=== PATIENT | female | born 1995 | race Caucasian/White ===

== ENCOUNTER 2018-05-27 11:13 | Emergency (ER) | payer MEDICAID, SELFPAY ==
[2018-05-27 11:20] VITALS: BP 125/82; PULSE 96; RESP 16; TEMP 36.5; O2SAT 96
--- NOTE | 2018-05-27 11:41 | DI.RAD_ITS ---
SYMPTOM/DIAGNOSIS: COUGH, SOB CHEST X-RAY: PA AND LATERAL. No priors. The heart is normal in size. The lungs are clear. The mediastinal structures and pleura appear intact. CONCLUSION: Normal chest.
--- NOTE | 2018-05-27 11:44 | ED.GENADUL_ITS ---
Discharge Plan Disposition Patient Disposition: HOME Condition: Fair Discharge Details Chief Complaint: RespSymp Clinical Impression: Bronchitis, Asthma exacerbation Primary Care Provider: Tasha Peñaloza ED Provider: Gema Banks Home Meds and New Rx's Prescriptions: New prednisone 20 mg tablet 40 mg PO DAILY Qty: 8 RF: 0 azithromycin 500 mg tablet See Label Instructions .ROUTE .COMPLEX Qty: 3 RF: 0 No Action fexofenadine-pseudoephedrine [Lola-D 24 Hour] 1 EACH tablet extended release 24 hr 1 tab-cap PO DAILY RF: 0 triamcinolone acetonide 15 GM cream 30 gm Topical tid prn Qty: 1 RF: 0 norethindrone-e.estradiol-iron [Blisovi Fe 08/12 ()] 1 EACH tablet 1 ea PO DAILY Qty: 3 RF: 4 montelukast 10 MG tablet 10 mg PO DAILY Qty: 30 RF: 1 fluticasone [Flovent HFA] 12 GM HFA aerosol inhaler 440 mcg Inhalation BID Qty: 1 RF: 2 escitalopram oxalate 20 MG tablet 1 tab PO DAILY Qty: 30 RF: 11 albuterol sulfate [ProAir HFA] 8.5 GM HFA aerosol inhaler 1 - 2 puff Inhalation Q6H PRN Qty: 1 RF: 4 Discharge Instructions Instructions: Asthma (ED), Acute Bronchitis (ED) Additional Instructions: Encourage hydration. Tylenol and/or ibuprofen as needed for discomfort. He may continue with your L inhaler as previously prescribed. Please take prednisone daily, try to take this in the morning as it may cause disturbances to sleep. Please take azithromycin as prescribed. Even if symptoms improve please finish the entire course of these medications. Please follow-up with primary care this week for reevaluation. If you develop fever/chills, difficulty breathing, increased shortness of breath or other new/worsening symptoms please seek care urgently once again. Referrals: Tasha Peñaloza NP [Primary Care Provider] - Discharge Data Discharge Date/Time-TO BE ENTERED AT DEPARTURE: 05/27/18 13:17 Medical Decision Making Patient 23-year-old female presenting today with chief complaint of asthma exacerbation and cough. She reports she been ill for the past 3 days. I will cough. She denies any fevers or chills. Denies any GI upset. Denies any pain in the ears or sore throat. States she has been bringing up some clear mucus with the cough. Has been feeling short of breath. Is been using her albuterol inhaler frequently, states that she last used this at 0800 this morning. On exam, patient was noted to be quite tight has diminished air movement. She does have faint expiratory wheeze in all covarrubias. I shows 96%. Patient is slightly tachycardic at 96. She appears otherwise well with no acute findings. She does appear congested. Plan to the patient DuoNeb and chest x-ray. Will first obtain a UPT. UPT negative Chest x-ray reviewed by radiologist. Advised the lungs are clear bilaterally. No focal pulmonary consolidation present. Cardiac silhouette is within normal limits. Costophrenic angles are sharp. Bony structures appear unremarkable. No evidence of acute cardiopulmonary disease Reevaluated the patient and she obtained her updraft. She is moving air much more freely. She is feeling improved. She continues to be wheezy but I am quite happy with the movement of air unable to hear at this point. Patient will be given a second albuterol nebulizer prior to departure. She will be begun on oral prednisone. Patient has not been on prednisone historically for her asthma. We did discuss the side effects that are possible with oral steroids. She will also be placed on azithromycin for presumed infection given her symptoms and history. Encouraged hydration. She was given strict return precautions. She will follow-up with primary care this week for reevaluation. All of her questions and concerns were addressed and she is in agreement this plan Patient reports she is no longer taking escitalopram, I did note interaction with this and azithromycin which she reports she stopped taking this for quite some time. HPI General Mode of arrival: ambulatory . Date/Time Provider Initiated Documentation: 05/27/18 11:33 . Limitations to Documentation: no limitations . Information obtained by: patient . History of Present Illness 23 year old F presents to the emergency department with the chief complaint of cough, SOB, described as moderate, with intensity rated at 4. Quality is described as aching (reports some discomfort with cough), and is localized to the chest. Patient denies radiation to back, neck, extremity and abdomen. Patient started experiencing this day(s) (3) and it has been constant. No relieving factors improve symptom(s), No exacerbating factors reported . Patient notes chest pain (with cough), cough and shortness of breath; denies fever/chills, headaches, loss of appetite, nausea/vomiting, rash and syncope. Patient did receive the following treatments prior to arrival, other ( albuterol inhaler) Related Data Home Medications Medication Instructions Recorded Confirmed fexofenadine-pseudoephedrine 1 tab-cap PO DAILY tab-cap 05/02/17 05/27/18 [Lola-D 24 Hour Tablet] triamcinolone acetonide 30 gm TOPICAL tid prn #1 script 06/28/17 05/27/18 norethindrone-e.estradiol-iron 1 ea PO DAILY #3 pack 08/02/17 05/27/18 [Blisovi Fe 1-20 Tablet] fluticasone [Flovent 220mcg] 440 mcg INHALATION BID #1 inhaler 09/12/17 05/27/18 montelukast 10 mg PO DAILY #30 tab-cap 18 05/27/18 escitalopram oxalate 1 tab PO DAILY #30 tab-cap 11/01/17 albuterol sulfate [Proair Hfa] 1 - 2 puff INHALATION Q6H PRN #1 12/04/17 inhaler azithromycin See Label Instructions .ROUTE 05/27/18 .COMPLEX #3 tab prednisone 40 mg PO DAILY #8 tab 05/27/18 Previous Rx's Medication Instructions Recorded triamcinolone acetonide 30 gm TOPICAL tid prn #1 script 06/28/17 norethindrone-e.estradiol-iron 1 ea PO DAILY #3 pack 08/02/17 [Blisovi Fe 1-20 Tablet] fluticasone [Flovent 220mcg] 440 mcg INHALATION BID #1 inhaler 09/12/17 montelukast 10 mg PO DAILY #30 tab-cap 09/12/17 escitalopram oxalate 1 tab PO DAILY #30 tab-cap 11/01/17 albuterol sulfate [Proair Hfa] 1 - 2 puff INHALATION Q6H PRN #1 12/04/17 inhaler azithromycin See Label Instructions .ROUTE 05/27/18 .COMPLEX #3 tab prednisone 40 mg PO DAILY #8 tab 05/27/18 Allergies Allergy/AdvReac Type Severity Reaction Status Date / Time No Known Allergies Allergy Unverified 05/27/18 11:25 General Stated Complaint: RespSymp PATRICA: 3 Review of Systems Constitutional Reports as per HPI and Denies headache(s) Eyes Denies eye discharge and Denies irritation ENT Reports system reviewed and no additional complaints, except as docu, Denies otalgia, Denies headache(s), Reports nasal congestion, Reports nasal discharge, Denies sinus pain, Denies sinus pressure and Denies sore throat Cardiovascular Reports as per HPI, Denies chest pain and Reports dyspnea Respiratory Reports as per HPI, Reports cough, Denies pain on inspiration, Denies pain with cough, Reports dyspnea, Denies stridor and Reports wheezing Gastrointestinal Denies abdominal pain, Denies change in stool character, Denies diarrhea, Denies nausea and Denies vomiting Musculoskeletal Denies back pain Integumentary/Breasts Denies rash Neurologic Denies headache(s) Allergic/Immunologic Reports wheezing PFSH Family History Mother Substance abuse Alcohol abuse Depression Asthma Father Diabetes Sister Substance abuse Depression Asthma Brother No problems noted. Grandfather Diabetes Neoplasm Grandfather No problems noted. Grandmother Diabetes Neoplasm Grandmother Heart disease FAMILY HISTORY Lupus Fibromyalgia Mental disorder Medical History Asthma BMI 40.0-44.9, adult Contraception, generic surveillance Depression Social History Smoking/Tobacco Use Status: Former Tobacco Use Exam Const General: cooperative, healthy appearing, comfortable, no acute distress, well developed and well groomed Nutritional Appearance: average body habitus and well nourished Orientation: alert and awake [facility] Head: normal to inspection and normocephalic Ears: hearing grossly normal bilaterally, external ears normal and TM's normal bilaterally General nose exam: external nose normal and nares normal Face and sinus: normal facial exam, sinuses nontender and face symmetric Mouth: oral mucosae normal, lip normal, tongue normal, oropharynx normal and moist mucous membranes Teeth and gingiva: dentition normal Throat: posterior oropharynx normal, tonsils normal and uvula midline Eyes General: appearance normal, both eyes and all related structures Neck Neck: normal visual inspection, full ROM, no lymphadenopathy, no meningeal signs , trachea midline and supple Chest Chest: normal inspection of the chest Resp Effort & Inspection: normal respiratory effort, able to speak in complete sentences, no respiratory distress, not tachypneic, no tripod positioning and no use of accessory muscles Auscultation: diminished lung sounds bilaterally and wheezes (diffuse faint wheezing) expiratory wheezes Cardio Rate: regular rate Rhythm: regular rhythm Heart Sounds: S1 normal and S2 normal Skin General skin exam: no rashes or lesions noted Neuro General: alert and awake Cognition: normal cognition Speech: speech normal Gait: normal gait Extrem General: no pedal edema, no calf tenderness and normal gait Psych Appearance: grossly normal and well kempt Mental Status: mental status grossly normal Speech and Movement: speech and movement normal Course Vital Signs Temperature 36.5 C 05/27/18 11:20 Pulse 96 H 05/27/18 11:20 Respiratory Rate 16 05/27/18 11:20 Blood Pressure 125/82 05/27/18 11:20 Pulse Oximetry 96 05/27/18 11:20 Temperature 36.5 C 05/27/18 11:20 Temperature Source Temporal Artery Scan 05/27/18 11:20 Pulse 96 H 05/27/18 11:20 Respiratory Rate 16 05/27/18 11:20 Respiratory Effort 05/27/18 11:27 Respiratory Depth Normal 05/27/18 11:27 Blood Pressure 125/82 05/27/18 11:20 Blood Pressure Position Sitting 05/27/18 11:20 Pulse Oximetry 96 05/27/18 11:20 Oxygen Delivery Method Room Air 05/27/18 11:20 Oxygen Flow Rate 0 05/27/18 11:20 Pain Level 4 05/27/18 11:20
[2018-05-27 11:47] VITALS: RESP 4
[2018-05-27] MEDS: Albuterol/Ipratropium 3 ML UPD VIAL UPD (11:47)
[2018-05-27 12:17] VITALS: RESP 4
--- NOTE | 2018-05-27 12:38 | DI.VRAD_ITS ---
EXAM: XR Chest, 2 Views EXAM DATE/TIME: 05/27/2018 11:42 AM CLINICAL HISTORY: 23 years old, female; Signs and symptoms; Other: Cough, SOB TECHNIQUE: XR of the chest, 2 views. COMPARISON: CR ABD FLAT UPRIGHT PA CHEST 05/27/2016 8:30 PM FINDINGS: The lung covarrubias are clear bilaterally. No focal pulmonary consolidation is present. The cardiac silhouette is within normal limits. The costophrenic angles are sharp. The bony structures appear unremarkable. IMPRESSION: No evidence of acute cardiopulmonary disease. Dictated and Authenticated by: Amari Blood MD. Ordering:THERESA GODFREY MD
[2018-05-27 12:49] VITALS: RESP 4
[2018-05-27] MEDS: predniSONE 20 MG TAB 40 MG PO (12:49)
[2018-05-27] MEDS: Albuterol 2.5 MG/3 ML INH SOLN VIAL UPD (12:49)
[2018-05-27 13:13] VITALS: BP 118/76; PULSE 102; RESP 16; TEMP 36.9; O2SAT 96
[2018-05-27 13:15] VITALS: BP 118/76; PULSE 102; RESP 16; TEMP 36.9; O2SAT 96
== END 2018-05-27 13:17 | disposition home or self-care (01) ==
PROVIDERS: Emergency Provider Physician Assistant
DX: J44.0 Chronic obstructive pulmonary disease with (acute) lower respiratory infection (principal); J20.9 Acute bronchitis, unspecified; J45.909 Unspecified asthma, uncomplicated; Z87.891 Personal history of nicotine dependence
CPT/HCPCS: 81025; 94640; 99284; 71046; 99285; J7512; J7613; J7620

== ENCOUNTER 2018-06-27 17:38 | Emergency (ER) | payer MEDICAID, SELFPAY ==
[2018-06-27 17:59] VITALS: BP 128/72; PULSE 87; RESP 16; TEMP 36.7
--- NOTE | 2018-06-27 18:10 | DI.RAD_ITS ---
SYMPTOM/DIAGNOSIS: HAND CRUSHED IN CAR DOOR RIGHT HAND: No fracture or dislocation is seen. IMPRESSION: Negative right hand.
--- NOTE | 2018-06-27 18:10 | DI.RAD_ITS ---
SYMPTOM/DIAGNOSIS: TRAUMA RIGHT WRIST: No fracture or dislocation is seen. IMPRESSION: Negative right wrist.
--- NOTE | 2018-06-27 18:11 | W.ED.GENAD ---
Discharge Plan Disposition Patient Disposition: HOME Condition: Fair Discharge Details Chief Complaint: Orthopedic Clinical Impression: Contusion of hand Reason For Visit: right hand / car door Primary Care Provider: Tasha Peñaloza ED Provider: Gema Banks Home Meds and New Rx's Prescriptions: Continue fexofenadine-pseudoephedrine [Lola-D 24 Hour] 1 EACH tablet extended release 24 hr 1 tab-cap PO DAILY RF: 0 triamcinolone acetonide 15 GM cream 30 gm Topical tid prn Qty: 1 RF: 0 norethindrone-e.estradiol-iron [Blisovi Fe 08/12 (28)] 1 EACH tablet 1 ea PO DAILY Qty: 3 RF: 4 montelukast 10 MG tablet 10 mg PO DAILY Qty: 30 RF: 1 fluticasone [Flovent HFA] 12 GM HFA aerosol inhaler 440 mcg Inhalation BID Qty: 1 RF: 2 escitalopram oxalate 20 MG tablet 1 tab PO DAILY Qty: 30 RF: 11 albuterol sulfate [ProAir HFA] 90 mcg/actuation HFA aerosol inhaler 1 - 2 puff Inhalation Q6H PRN Qty: 1 RF: 4 prednisone 20 mg tablet 40 mg PO DAILY Qty: 8 RF: 0 azithromycin 500 mg tablet See Label Instructions .ROUTE .COMPLEX Qty: 3 RF: 0 Discharge Instructions Instructions: Contusion in Adults (ED) Additional Instructions: Encourage rest, ice, elevation. Tylenol and/or ibuprofen as needed for discomfort. May continue with James wrap to help with discomfort and swelling. Please avoid activities that cause increased pain. If you develop new or worsening symptoms please seek care urgently once again. If pain is not improved over the next 2 weeks please follow-up with primary care. Referrals: Tasha Peñaloza, [employer]INE[employer] [Primary Care Provider] - Discharge Data Discharge Date/Time-TO BE ENTERED AT DEPARTURE: 06/27/18 20:14 Medical Decision Making Patient 23-year-old [id number] female presenting today with chief complaint of right hand and wrist pain. 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 She reports the client, and anger, slammed the door on her hand catching her over the MCP joints. Pain is maximal over the third and fourth MCP joint. However, she states that she then pulled her digits from the vehicle door and now is endorsing some finger pain. Also reports that secondary to the unusual rotation she is having wrist pain. She denies any altered sensation. Denies other injuries from the incident. No opening in the skin. She does have some ecchymosis and swelling over the third and fourth MCP joint. Very limited range of motion of her digits and her wrist secondary to discomfort. She is not taking anything as of yet for her discomfort. Will give Tylenol and ibuprofen. Will obtain x-rays of the hand and wrist X-ray reviewed by radiologist. X-ray of the right hand reviewed, no acute fracture or subluxation. Mild dorsal hand swelling which is also noted on physical exam. Advised overall impression is no acute bony pathology. X-ray of the patient's right wrist also reviewed with no acute fracture or subluxation. Soft tissues are normal. Overall impression no acute bony pathology Patient I discussed the findings. Advised on contusion. Encouraged rest, ice, elevation. Tylenol and/or ibuprofen as needed for discomfort. I did advise that she use James wrap to help with swelling and discomfort. This will be applied by nursing staff prior to her departure. I advised that she seek care with any new or worsening symptoms. Advised she not perform any heavy lifting or activities that may increase her discomfort. Advise follow-up with primary care pain is not improving over the next 2 weeks. All of her questions and concerns were addressed and she is in agreement with this plan HPI General Mode of arrival: ambulatory. Date/Time Provider Initiated Documentation: 06/27/18 18:06. Limitations to Documentation: no limitations. Information obtained by: patient. History of Present Illness 23 year old F presents to the emergency department with the chief complaint of right hand and wrist pain, described as moderate, with intensity rated at 7. Quality is described as aching, and is localized to the right and upper extremity. Patient reports no radiation. Patient started experiencing this minute(s) and it has been constant. Immobilization improves symptom(s), Movement worsens symptoms . Patient notes no other symptoms.; denies fever/chills, headaches, rash and weakness. Patient did receive the following treatments prior to arrival, none Related Data Home Medications Medication Instructions Recorded Confirmed fexofenadine-pseudoephedrine 1 tab-cap PO DAILY tab-cap 05/02/17 05/27/18 [Lola-D 24 Hour] triamcinolone acetonide 30 gm TOPICAL tid prn #1 script 06/28/17 05/27/18 norethindrone-e.estradiol-iron 1 ea PO DAILY #3 pack 08/02/17 05/27/18 [Blisovi Fe 08/12 (28)] fluticasone [Flovent HFA] 440 mcg INHALATION BID #1 inhaler 09/12/17 05/27/18 montelukast 10 mg PO DAILY #30 tab-cap 09/12/17 05/27/18 escitalopram oxalate 1 tab PO DAILY #30 tab-cap 11/01/17 azithromycin See Label Instructions .ROUTE 05/27/18 .COMPLEX #3 tab prednisone 40 mg PO DAILY #8 tab 05/27/18 albuterol sulfate HFA 90 1 - 2 puff INHALATION Q6H PRN #1 05/28/18 mcg/actuation aerosol inhaler inhaler Previous Rx's Medication Instructions Recorded triamcinolone acetonide 30 gm TOPICAL tid prn #1 script 06/28/17 norethindrone-e.estradiol-iron 1 ea PO DAILY #3 pack 08/02/17 [Blisovi Fe 08/12 (28)] fluticasone [Flovent HFA] 440 mcg INHALATION BID #1 inhaler 09/12/17 montelukast 10 mg PO DAILY #30 tab-cap 09/12/17 escitalopram oxalate 1 tab PO DAILY #30 tab-cap 11/01/17 azithromycin See Label Instructions .ROUTE 05/27/18 .COMPLEX #3 tab prednisone 40 mg PO DAILY #8 tab 05/27/18 albuterol sulfate HFA 90 1 - 2 puff INHALATION Q6H PRN #1 05/28/18 mcg/actuation aerosol inhaler inhaler Allergies Allergy/AdvReac Type Severity Reaction Status Date / Time No Known Allergies Allergy Unverified 05/27/18 11:25 General Stated Complaint: Orthopedic PATRICA: 4 Review of Systems Constitutional Reports as per HPI, Denies chills, Denies fever(s), Denies headache(s) and Denies weakness ENT Denies headache(s) Cardiovascular Reports as per HPI Respiratory Reports as per HPI and Denies cough Musculoskeletal Reports as per HPI and Denies tingling Integumentary/Breasts Reports as per HPI, Denies rash and Denies wounds Neurologic Denies headache(s), Denies tingling and Denies weakness PFSH Asthma BMI 40.0-44.9, adult Contraception, generic surveillance Depression Family History Mother Substance abuse Alcohol abuse Depression Asthma Father Diabetes Sister Substance abuse Depression Asthma Brother No problems noted. Grandfather Diabetes Neoplasm Grandfather No problems noted. Grandmother Diabetes Neoplasm Grandmother Heart disease FAMILY HISTORY Lupus Fibromyalgia Mental disorder Family History Mother Substance abuse Alcohol abuse Depression Asthma Father Diabetes Sister Substance abuse Depression Asthma Brother No problems noted. Grandfather Diabetes Neoplasm Grandfather No problems noted. Grandmother Diabetes Neoplasm Grandmother Heart disease FAMILY HISTORY Lupus Fibromyalgia Mental disorder Medical History Asthma BMI 40.0-44.9, adult Contraception, generic surveillance Depression Social History Smoking/Tobacco Use Status: Former Tobacco Use Social History Smoking/Tobacco Use Status: Former Tobacco Use Exam Const General: cooperative, healthy appearing, comfortable, no acute distress, well developed and well groomed Nutritional Appearance: average body habitus and well nourished Orientation: alert and awake Resp Effort & Inspection: normal respiratory effort, able to speak in complete sentences and no respiratory distress Cardio Rate: regular rate Rhythm: regular rhythm Skin General skin exam: ecchymosis (ulnar side of the dorsum of the hand with associated soft tissue swelling) Neuro General: alert and awake Cognition: normal cognition Speech: speech normal Gait: normal gait Motor: muscle tone normal throughout Sensory Exam: no sensory deficits noted Extrem Right upper extremity: normal capillary refill and no joint enlargement; abnormal to inspection (Patient has swellin gand ecchymosis as above. Limited ROM. She is able to extend against resistance well. No snuff box tenderness. No pain in the digits. Sensation intact. Wrist pain diffuse, no palpable or visible deformity of hand or wrist. ) Psych Appearance: grossly normal and well kempt Mental Status: mental status grossly normal Speech and Movement: speech and movement normal Course Vital Signs Temperature 36.7 C 06/27/18 17:59 Pulse 87 06/27/18 17:59 Respiratory Rate 16 06/27/18 17:59 Blood Pressure 128/72 06/27/18 17:59 Temperature 36.7 C 06/27/18 17:59 Pulse 87 06/27/18 17:59 Respiratory Rate 16 06/27/18 17:59 Blood Pressure 128/72 06/27/18 17:59 Blood Pressure Position Sitting 06/27/18 17:59 Oxygen Delivery Method Room Air 06/27/18 17:59 Oxygen Flow Rate 0 06/27/18 17:59 Pain Level 7 06/27/18 17:59
[2018-06-27] MEDS: Ibuprofen 600 MG TAB PO (19:20)
[2018-06-27] MEDS: Acetaminophen 500 MG TAB 1000 MG PO (19:20)
--- NOTE | 2018-06-27 19:26 | DI.VRAD_ITS ---
EXAM: XR Right Hand Complete, 3 or more Views EXAM DATE/TIME: 06/27/2018 6:12 PM CLINICAL HISTORY: 23 years old, female; Pain; Hand; Right; Patient HX: R hand closed in car door TECHNIQUE: XR Right hand 3 or more views. COMPARISON: No relevant prior studies available. FINDINGS: Bones/joints: No acute fracture or subluxation. Soft tissues: Mild dorsal hand swelling. IMPRESSION: No acute bony pathology. Dictated and Authenticated by: Kenia Lau MD. Ordering:THERESA GODFREY MD
--- NOTE | 2018-06-27 19:26 | DI.VRAD_ITS ---
EXAM: XR Right Wrist Complete, 3 or more Views EXAM DATE/TIME: 06/27/2018 6:12 PM CLINICAL HISTORY: 23 years old, female; Pain; Hand; Right; Patient HX: Right wrist closed in car door TECHNIQUE: XR Right wrist 3 or more views. COMPARISON: No relevant prior studies available. FINDINGS: Bones/joints: No acute fracture or subluxation. Soft tissues: Normal. IMPRESSION: No acute bony pathology. Dictated and Authenticated by: Kenia Lau MD. Ordering:THERESA GODFREY MD
== END 2018-06-27 20:14 | disposition home or self-care (01) ==
LOC: ER 20:16
PROVIDERS: Emergency Provider Physician Assistant
DX: S60.221A Contusion of right hand, initial encounter (principal); W23.0XXA Caught, crushed, jammed, or pinched between moving objects, initial encounter
CPT/HCPCS: 99284; 73110; 73130

== ENCOUNTER 2020-11-04 23:42 | Emergency (ER) | payer SELFPAY ==
[2020-11-04 23:48] VITALS: BP 120/64; PULSE 133; RESP 15; TEMP 36.6; O2SAT 95
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
[2020-11-05 00:23] VITALS: PULSE 104; O2SAT 96
== END 2020-11-05 00:24 | disposition home or self-care (01) ==
PROVIDERS: Emergency Provider Emergency Medicine
DX: S00.83XA Contusion of other part of head, initial encounter (principal); Y04.0XXA Assault by unarmed brawl or fight, initial encounter; R51.9 Headache, unspecified
CPT/HCPCS: 99282; 99283